=== PATIENT | female | born 2005 | race Caucasian/White ===

== ENCOUNTER 2025-07-05 22:13 | Emergency (ER) | payer MEDICAID, SELFPAY ==
[2025-07-05 22:13] VITALS: BMI 23.3
--- NOTE | 2025-07-05 22:26 | XR_ITS ---
Examination: Complete OB ultrasound, less than 14 weeks, transabdominal Date and time of exam: July 05, 2025, 10:36 p.m. INDICATIONS: Onset heavy vaginal bleeding today Technique: Obstetrical ultrasound images less than 14 weeks performed via transabdominal imaging Findings: Uterus 10.0 cm intrauterine gestation, pole CRL 2.2 cm corresponds to 8 weeks 6 days gestational age No cardiac motion Right ovary 3.0 cm arterial flow Left ovary obscured by bowel gas IMPRESSION: demise
[2025-07-05 23:03] LABS: Basophils # (Auto) 0.1 Thou/mm3 (0.0-0.2); Basophils % (Auto) 1 % (0-2.5); Eosinophils # (Auto) 0.2 Thou/mm3 (0.0-0.5); Eosinophils % (Auto) 2 % (0-10); Hematocrit 38.6 % (36.0-46.0); Hemoglobin 12.7 g/dL (12.0-16.0); Immature Granulocytes Auto 0.02 Thou/mm3 (0.00-0.00); Lymphocytes # (Auto) 2.4 Thou/mm3 (1.0-5.0); Lymphocytes % (Auto) 28 % (10-50); Mean Corpuscular HGB Conc 32.9 g/dl (31.0-37.0); Mean Corpuscular Hemoglobin 28.0 pg (25.0-35.0); Mean Corpuscular Volume 85 fL (80-100); Monocytes # (Auto) 0.6 Thou/mm3 (0.0-0.8); Monocytes % (Auto) 7 % (0-12); Neutrophils # (Auto) 5.6 Thou/mm3 (1.8-7.7); Neutrophils % (Auto) 63 % (37-80); Nucleated Red Blood Cell # 0.00 Thou/mm3 (0.00-0.00); Nucleated Red Blood Cell % 0 /100 WBC (0); Platelet Count 207 Thou/mm3 (140-440); RDW Standard Deviation 43.1 fL (36.4-46.3); Red Blood Count 4.53 Miln/mm3 (4.00-5.20); White Blood Count 8.8 Thou/mm3 (4.5-11.0)
[2025-07-05 23:25] LABS: Alanine Aminotransferase 18 U/L (10-49); Albumin, Serum 4.3 gm/dL (3.5-5.0); Albumin/Globulin Ratio 2.0 (1.2-2.2); Alkaline Phosphatase 71 U/L (46-116); Anion Gap 9 (7-16); Aspartate Amino Transferase 19 U/L (0-34); BUN/Creatinine Ratio 16 Ratio (12-20); Bilirubin,Total 0.4 mg/dL (0.3-1.2); Blood Urea Nitrogen 13 mg/dL (9-23); Calcium 9.2 mg/dL (8.3-10.6); Calcium (Corrected) 9.2 mg/dL (8.5-10.1); Carbon Dioxide 23.4 mMol/L (20.0-31.0); Chloride 109 mMol/L (98-107); Creatinine (Component) 0.8 mg/dL (0.6-1.3); Estimated Creatinine Clearance 101.8 mL/min (>60); Globulin 2.2 gm/dL (2.3-3.5); Glucose 85 mg/dL (74-106); Osmolality,Calculated 280 (275-295); Potassium 4.3 mMol/L (3.4-5.1); Sodium 141 mMol/L (136-145); Total Protein 6.5 gm/dL (5.7-8.2); eGFR > 60 See Note
[2025-07-05 23:43] LABS: Beta HCG,Quantitative 4302 mIU/mL (<5.0)
[2025-07-06 00:41] LABS: Collection Type, Urine Voided
[2025-07-06 00:54] LABS: Bilirubin,Urine Negative (Negative); Blood,Urine 1+ (Negative); Clarity,Urine Clear (Clear/Hazy); Color,Urine Lt-Yellow (Lt Yel-Yel); Glucose, Urine 3+ (Negative); Ketones,Urine Negative (Negative); Leukocyte Esterase,Urine Negative (Negative); Nitrite,Urine Negative (Negative); PH,Urine 6.5 (5.0-7.0); Protein,Urine 3+ (Neg - Trace); RBC,Urine 4 /hpf (0-3); Specific Gravity,Urine 1.046 (1.001-1.035); Squamous Epithelial Cell,Urine 2 /hpf (0-5); Urobilinogen,Urine Negative mg/dL (0.0-1.0); WBC,Urine 3 /hpf (0-5)
--- NOTE | 2025-07-06 02:13 | PRELIM_ITS ---
Obstetric ultrasound (transabdominal ) with Doppler and wave Doppler spectral analysis. July 05, 2025 2236 hours Clinical history: Vaginal bleeding. Technique: Real-time ultrasound was performed using Duplex scanning including arterial inflow, venous outflow, color and spectral Doppler analysis of both ovaries. Comparison: None available at the time of this report. Findings: There is an intrauterine gestation with a nonviable fetus of mean gestational age 8 weeks and 6 days (CRL= 2.2 cm). cardiac activity is not demonstrated. The yolk sac is not visualized. The uterus measures 10.0 x 6.1 x 6.4 cm. The right ovary measures 3.0 x 2.3 x 2.0 cm and is unremarkable. The left ovary was not visualized. There is no free fluid in the pelvis. Impression: Nonviable intrauterine gestation. Report Electronically Signed By: Reji Betancourt 07/06/2025 2:11:56 AM [EST]
--- NOTE | 2025-08-23 13:24 | EDNOTE_ITS ---
ED OB Contraction Preg RMI/HPI General Chief complaint: Vaginal Bleeding Stated complaint: VAGINAL BLEEDING, 10 WEEKS Time Seen by Provider: 07/05/25 22:25 Arrival date/time: 07/05/25 22:13 This is a case of 19-year-old female with no medical history came in in the emergency room due to vaginal spotting vaginal bleeding but no blood clots patient is 10 weeks 1 para 0 no other symptoms noted Limitations: no limitations Related Data Home Medications ?Medication ?Instructions ?Recorded ?Confirmed vits no.130-ferrous fum 1 tab PO DAILY 01/22/23 27 mg iron-folic acid 800 mcg tablet ( Vitamin) Previous Rx's ?Medication ?Instructions ?Recorded acetaminophen 300 mg-codeine 30 mg 2 tab PO Q8H PRN pa in #20 tabs 07/06/25 tablet ibuprofen 600 mg tablet 600 mg PO TID PRN fever or p ain 07/06/25 #30 tabs Allergies Allergy/AdvReac Type Severity Reaction Status Date / Time ceftriaxone sodium Allergy Unknown Rash Verified 07/06/25 07:40 Review of Systems Review of Systems Systems Reviewed: All systems reviewed, normal except as documented Past Medical History Past Medical History NEUROLOGIC: Negative Neurological Disorders or Seizures CARDIAC: Positive Cardiac Disorders and Heart Murmur (as , has closed after ); Negative Congestive Heart Failure RESPIRATORY: Negative Chronic Obstructive Pulmonary Disease (COPD) or Asthma GASTROINTESTINAL: Negative Gastrointestinal Disorders GENITOURINARY: Negative Genitourinary Disorders or Renal Disease MUSCULOSKELETAL: Negative Musculoskeletal Disorders or Scoliosis ENDOCRINE: Negative Endocrine Disorders, Diabetes Mellitus Type 1 or Diabetes Mellitus Type 2 HEMATOLOGIC: Negative Blood Disorders or Anemia PSYCHO/SOCIAL: Positive Depression and Anxiety OTHER HISTORY: Negative Hospitalization, Autoimmune Disease, Blood Transfusions, Blood Transfusion Reaction or Anesthesia Reactions Family History FAMILY HISTORY: Positive Family Cancer (grandmother); Negative Family Psychiatric Problems, Family Respiratory Disorders, Family Cardiac Disorders, Family Gastrointestinal Problems, Family Surgery or Family Anesthesia Reaction Surgical History SURGICAL: Negative Section Social History SMOKING STATUS: Never smoker ED Exam General Limitations: Present no limitations General appearance: Present alert, in no apparent distress and other (Patient is awake alert oriented not in distress nontoxic looking well-hydrated well- nourished) Head Head exam: Present atraumatic, normocephalic and normal inspection Eye Eye exam: Present normal appearance, PERRL and EOMI ENT ENT exam: Present normal exam, normal oropharynx, mucous membranes moist and other (heent normal) Neck Neck exam: Present normal inspection, full ROM, trachea midline and other (negative fo menigeal sign) Chest Chest inspection: Present normal inspection and symmetric chest wall rise Respiratory Respiratory exam: Present normal lung sounds bilaterally; Absent respiratory distress, wheezes, stridor, accessory muscle use or prolonged expiratory phase Cardiovascular Cardiovascular exam: Present regular rate, normal rhythm and normal heart sounds; Absent bradycardia, tachycardia, irregular rhythm, systolic murmur or diastolic murmur Abdominal Exam Abdominal exam: Present soft, normal bowel sounds and other (gravid uterus); Absent distention, tenderness, guarding, rebound, rigidity, diminished bowel sounds, hyperactive bowel sounds, hypoactive bowel sounds or organomegaly Extremities Exam Extremities exam: Present normal inspection and full ROM Back Exam Back exam: Present normal inspection and full ROM Neurological Exam Neurological exam: Present alert, oriented X3, CN II-XII intact, normal gait and reflexes normal; Absent motor sensory deficit Psychiatric Psychiatric exam: Present normal affect and normal mood Skin Skin exam: Present warm, dry, intact, normal color and other (exellent skin turgor) Course Quality Measures none Orders Category Date Time Status US OB <= 14 weeks fetus Stat Exams 07/05/25 22:26 Completed ABO/RH Type Stat Lab 07/05/25 22:49 Completed Beta HCG,Quantitative Stat Lab 07/05/25 22:49 Completed CBC Stat Lab 07/05/25 22:49 Completed CMP [Comprehensive Metabolic Panel] Stat Lab 07/05/25 22:49 Completed Urinalysis Stat Lab 07/05/25 00:07 Completed Vital Signs Vital signs: stable vs Vaginal Bleeding MDM Narrative [facility] Narrative: Patient was discharged with comfortable condition walking with stable gait. Patient verbalized no further complains explained diagnosis and answered patient question. Patient is comfortable with the proposed management plan including the need to follow up with his/her primary care physician and any specialist if applicable Discussed patient for any urgent condition or worsening sx, He/She needed to go to emergency room immediately or call 911. Patient acknowledge the responsibility to follow up as instructed and to monitor her/his symptoms. For any persistence of the symptoms for more than 3-5 days return precaution advised. Discussed the result of the test and was given printed discharge instruction Patient data External records reviewed:: [facility] previous records Clinical information provided by:: patient Social determinants that could affect healthcare access:: none Patient has the following chronic illnesses:: none How is presenting disease/condition affected by chronic disease/condition?: no chronic disease Evaluation data The following diagnostics were reviewed and interpreted by me:: lab results and radiology exam(s) Lab and/or radiology exams considered but not ordered:: reviewed Interpretation Summary: reviewed Medications / Prescriptions Medications or Prescriptions considered but not ordered:: given Medication administrations:: given Consultations Consultation(s) initiated? (list below): No Diagnosis Vaginal Bleeding Differential Diagnosis: threatened Most likely diagnosis given after review of the tests above:: Threatened in early Admission Indicated Admission indicated?: not indicated Explain why admission is indicated or not indicated:: not indicated Admission Request Was there a request for admission?: No Admission Attestation Admission request attestation: not indicated Disposition Plan Disposition Plan: Discharge Discharge Attestation Discharge Attestation: The patient and all family members were given an opportunity to ask questions and understood the discharge instructions. Discharge instructions specifically effects, indications for sooner follow up or return to the emergency department, and the expected course of current diagnosis. Patient condition: Stable Discharge Plan Plan Patient Disposition: HOME (Self Care) Patient condition on transfer: Stable Prescriptions/Referrals Prescriptions/Med Rec: No Action Vitamin 27 mg iron- 800 mcg tablet 1 tab PO DAILY acetaminophen-codeine 300-30 mg tablet 2 tab PO Q8H MDD 6 PRN (Reason: pain) Qty: 20 0RF ibuprofen 600 mg tablet 600 mg PO TID PRN (Reason: fever or pain) Qty: 30 0RF Referrals: No Primary/Family,Physician [Primary Care Provider] - In 1 week Problem List Clinical Impression: , threatened, early Patient/Caregiver Discharge Instructions Education Materials: ED Possible Miscarriage ... Additional Instructions: It is very important to return in the emergency room in 2 days for reevaluation and to have repeat pelvic ultrasound and beta-hCG to confirm early s pontaneous or blighted ovum it is also important to see a OB materials and processes manager for further evaluation and treatment of threatened in early and for checkup follow-up with your primary care physician in 2 days for reevaluation and for any worsening symptoms or any emergent concern return precaution in the ER is advised continue your multivitamins pelvic rest hydration advised Print Language: Mongolian Stand Alone Forms: [facility] Info., Patient Portal Info Letter PA/CHAINSTITCH TUNNEL ELASTIC OPERATOR Supervising Physician PA/CHAINSTITCH TUNNEL ELASTIC OPERATOR Supervising Physician: Dr. Qiu
== END 2025-07-06 03:01 | disposition home or self-care (01) ==
PROVIDERS: Nurse Practitioner Family; Emergency Provider Emergency Medicine
DX: O20.0 Threatened abortion (principal); Z3A.10 10 weeks gestation of pregnancy
CPT/HCPCS: 36415; 76801; 80053; 81001; 84702; 85025; 86900; 86901; 99282

== ENCOUNTER 2025-07-06 07:38 | Emergency (ER) | payer MEDICAID, SELFPAY ==
[2025-07-06 08:01] VITALS: BP 110/65; PULSE 83; RESP 16; TEMP 36.8; O2SAT 98; BMI 23.3
--- NOTE | 2025-07-06 08:04 | EDNOTE_ITS ---
ED OB Contraction Preg RMI/HPI General Chief complaint: Vaginal Bleeding Stated complaint: VAGINAL BLEEDING, CRAMPING Time Seen by Provider: 07/06/25 08:04 Arrival date/time: 07/06/25 07:38 RME / HPI RME / HPI Narrative: See MDM for Dr. Campbell's HPI documenation. Related Data Home Medications ?Medication ?Instructions ?Recorded ?Confirmed vits no.130-ferrous fum 1 tab PO DAILY 01/22/23 27 mg iron-folic acid 800 mcg tablet ( Vitamin) Previous Rx's ?Medication ?Instructions ?Recorded acetaminophen 300 mg-codeine 30 mg 2 tab PO Q8H PRN pa in #20 tabs 07/06/25 tablet ibuprofen 600 mg tablet 600 mg PO TID PRN fever or p ain 07/06/25 #30 tabs ondansetron 4 mg disintegrating 4 mg PO TID PRN nausea and 07/06/25 tablet vomiting 30 days #10 tabs Allergies Allergy/AdvReac Type Severity Reaction Status Date / Time ceftriaxone sodium Allergy Unknown Rash Verified 07/06/25 07:40 Review of Systems Review of Systems Systems Reviewed: All systems reviewed, normal except as documented Past Medical History Past Medical History NEUROLOGIC: Negative Neurological Disorders or Seizures CARDIAC: Positive Cardiac Disorders and Heart Murmur (as , has closed after ); Negative Congestive Heart Failure RESPIRATORY: Negative Chronic Obstructive Pulmonary Disease (COPD) or Asthma GASTROINTESTINAL: Negative Gastrointestinal Disorders GENITOURINARY: Negative Genitourinary Disorders or Renal Disease MUSCULOSKELETAL: Negative Musculoskeletal Disorders or Scoliosis ENDOCRINE: Negative Endocrine Disorders, Diabetes Mellitus Type 1 or Diabetes Mellitus Type 2 HEMATOLOGIC: Negative Blood Disorders or Anemia PSYCHO/SOCIAL: Positive Depression and Anxiety OTHER HISTORY: Negative Hospitalization, Autoimmune Disease, Blood Transfusions, Blood Transfusion Reaction or Anesthesia Reactions Family History FAMILY HISTORY: Positive Family Cancer (grandmother); Negative Family Psychiatric Problems, Family Respiratory Disorders, Family Cardiac Disorders, Family Gastrointestinal Problems, Family Surgery or Family Anesthesia Reaction Surgical History SURGICAL: Negative Section Social History SMOKING STATUS: Never smoker ED Exam Narrative Physical exam: See MDM for Dr. Campbell's physical exam documentation. Course Quality Measures none Orders Category Date Time Status Mifepristone Med 07/06/25 08:07 Discontinued 200 mcg PO STAT STA Misoprostol [Cytotec] Med 07/06/25 08:05 Discontinued 800 mcg PO X1 ONE Vital Signs Vital signs: Vital Signs Temperature 98.2 F 07/06/25 08:01 Pulse Rate 83 07/06/25 08:01 Respiratory Rate 16 07/06/25 08:01 Blood Pressure 110/65 07/06/25 08:01 Pulse Oximetry (%) 98 07/06/25 08:01 Oxygen Delivery Method Room Air 07/06/25 08:01 Vaginal Bleeding MDM Narrative MDM Narrative: This section includes all my notes and documentations, including HPI, PE, and ED course. Ebenezer Campbell MD HPI: 19-year-old female here with severe vaginal bleeding since last night with cramping. No other complaints. ROS: All negative except as documented in HPI. Physical Exam: General: Alert and oriented. No acute distress when remaining still. Eyes: Conjunctivae and lids clear. ENT: No nasal congestion. Neck: Supple. Heart: RRR. Lungs: No respiratory distress. Good air movement. No rhonchi, wheezing, rales. Abdomen: Soft and nontender. Normal bowel sounds. No distension. No rebound or guarding. Back: No CVA tenderness. Skin: Warm and dry. Neuro: Alert and oriented X 3. My review of 07/05 fetus US report is demise. At this point, diagnoses include: Miscarriage Treatment here included: Misoprostol 800 mcg PO Recommended expectant management. Based on my best medical judgment, made decision no further evaluation or treatment indicated at this time. Patient understands and agrees to the discharge instructions customized and printed, see below. Discharge Instructions from Dr. Campbell printed for you: 1. With your worsening bleeding and cramping and reviewing last night's test results, you are having a miscarriage. 2. Expect to have worsening pain and bleeding as your uterus tries to get everything out. 3. For good hydration, increase oral fluid and maintain clear urine. If dark o r yellow, increase oral fluid. Zofran for nausea/vomiting. 4. Ibuprofen 600 mg every 6-8 hours today and tomorrow then as needed. Tylenol with codeine for more pain. 5. See a private doctor on 07/05/2025 for recheck. Ask to review all test results and official radiology reports, to make sure you receive all necessary follow-ups and monitoring. Ask for help until you are completely better. 6. Seek immediate medical care with intolerable pain, extremely heavy vaginal bleeding (soaking more than 3 pads per hour), or with any concerns. Ebenezer Campbell MD Patient data External records reviewed:: [facility] previous records (Per chart review, patient was seen here last night for threatened .) Clinical information provided by:: patient Social determinants that could affect healthcare access:: none Patient has the following chronic illnesses:: none How is presenting disease/condition affected by chronic disease/condition?: no chronic disease Evaluation data The following diagnostics were reviewed and interpreted by me:: other (specify) (none) Lab and/or radiology exams considered but not ordered:: none Interpretation Summary: none Medications / Prescriptions Medications or Prescriptions considered but not ordered:: none Medication administrations:: Medication Administration History Discontinued Medications Misoprostol (Misoprostol 200 Mcg Tablet) 800 mcg PO X1 ONE Stop: 07/06/25 08:06 Last Admin: 07/06/25 08:33 Dose: 800 mcg Documented By: VL Non-Formulary Medication (Mifepristone) 200 mcg PO STAT STA Stop: 07/06/25 08:08 Last Admin: 07/06/25 08:11 Dose: Not Given Documented By: LF Non-Admin Reason: Medication Not Available Misoprostol 800 mcg PO Consultations Consultation(s) initiated? (list below): No Diagnosis Vaginal Bleeding Differential Diagnosis: missed , threatened , dysfunctional uterine bleeding, incomplete and vaginal bleeding Most likely diagnosis given after review of the tests above:: Incomplete miscarriage Admission Indicated Admission indicated?: not indicated Explain why admission is indicated or not indicated:: With no condition needing emergent intervention, there was no indication for admission. Admission Request Was there a request for admission?: No Disposition Plan Disposition Plan: Discharge Discharge Attestation Discharge Attestation: The patient and all family members were given an opportunity to ask questions and understood the discharge instructions. Discharge instructions specifically effects, indications for sooner follow up or return to the emergency department, and the expected course of current diagnosis. Patient condition: Stable Discharge Plan Plan Patient Disposition: HOME (Self Care) Prescriptions/Referrals Prescriptions/Med Rec: New acetaminophen-codeine 300-30 mg tablet 2 tab PO Q8H MDD 6 PRN (Reason: pain) Qty: 20 0RF ondansetron 4 mg tablet,disintegrating 4 mg PO TID PRN (Reason: nausea and vomiting) 30 Days Qty: 10 0RF ibuprofen 600 mg tablet 600 mg PO TID PRN (Reason: fever or pain) Qty: 30 0RF No Action Vitamin 27 mg iron- 800 mcg tablet 1 tab PO DAILY Problem List Clinical Impression: Miscarriage Patient/Caregiver Discharge Instructions Discharge Activity: activity as tolerated Education Materials: ED Miscarriage, Incomplete Additional Instructions: Discharge Instructions from Dr. Campbell printed for you: 1. With your worsening bleeding and cramping and reviewing last night's test results, you are having a miscarriage. 2. Expect to have worsening pain and bleeding as your uterus tries to get everything out. 3. For good hydration, increase oral fluid and maintain clear urine. If dark or yellow, increase oral fluid. Zofran for nausea/vomiting. 4. Ibuprofen 600 mg every 6-8 hours today and tomorrow then as needed. Tylenol with codeine for more pain. 5. See a private doctor on 07/05/2025 for recheck. Ask to review all test results and official radiology reports, to make sure you receive all necessary follow-ups and monitoring. Ask for help until you are completely better. 6. Seek immediate medical care with intolerable pain, extremely heavy vaginal bleeding (soaking more than 3 pads per hour), or with any concerns. Print Language: Luxembourgish Stand Alone Forms: [facility] Info., Patient Portal Info Letter
== END 2025-07-06 08:39 | disposition home or self-care (01) ==
LOC: SERX 08:42
PROVIDERS: Emergency Provider Emergency Medicine; PCP Family Medicine
DX: O03.9 Complete or unspecified spontaneous abortion without complication (principal)
CPT/HCPCS: 99281; S0191; A9270